=== PATIENT | female | born 1970 | race Caucasian/White ===

== ENCOUNTER 2016-06-22 13:59 | Observation (INO) | payer BC ==
[~2016-06-22] VITALS: Ht 167.6 cm; Wt 118.0 kg
[~2016-06-22 13:59] MED LIST: SYNTHROID112 MCG PO
[2016-06-22 14:38] LABS: HEMATOCRIT 43.6 % (36.0-46.0); MCH 28.4 PG (29.0-34.0); MCHC 32.1 G/DL (30.0-36.0); MCV 88.4 FL (83-99); RBC DIS.WIDTH-CV 13.8 % (11.8-14.6); RBC DIS.WIDTH-SD 44.4 % (39-53); RED BLOOD COUNT 4.93 M/uL (3.80-5.20)
[2016-06-22 14:46] LABS: CHLORIDE 108 mEq/L (99-109); POTASSIUM 4.2 mEq/L (3.7-5.4); SODIUM 144 mEq/L (136-147)
[2016-06-22 14:48] LABS: D-DIMER ELISA 0.47 mg/L FEU (< 0.57); GLUCOSE 89 mg/dL (70-99)
[2016-06-22 14:50] LABS: ANION GAP 8 MEQ/L (2-14)
[2016-06-22 14:52] LABS: GFR ESTIMATE (CALCULATED) > 59 mL/min/
[2016-06-22 14:53] LABS: UREA NITROGEN (BUN) 11 mg/dL (9-23)
[2016-06-22 14:58] LABS: TROP-I INTERPRETATION NEGATIVE; TROPONIN-I < 0.01 ng/mL (0.0-0.30)
[2016-06-22] MEDS ORDERED: LEVOTHYROXINE137 MCG PO (15:19)
[2016-06-22] MEDS ORDERED: FLORINEF ACETA0.1 MG PO (15:20)
[2016-06-22] MEDS ORDERED: HYDROCORTISONE5 MG PO ×3 (15:20→16:54)
[2016-06-22] MEDS ORDERED: VITAMIN D2000 UNI1 PO (15:21)
[2016-06-22] MEDS ORDERED: CORTEF10 MG PO (15:21)
[2016-06-22] MEDS ORDERED: VITAMIN B122500 MCG PO (15:22)
[2016-06-22] MEDS ORDERED: NAPROSYN500 MG PO (16:36)
[2016-06-22 16:58] LABS: MEAN PLAT.VOLUME 11.3 uM^3 (9.5-12.4); PLATELET COUNT 241 K/uL (156-360)
[2016-06-22 19:35] LABS: HDL CHOLESTEROL 43 MG/DL (Desirable>=50); LDL CHOLESTEROL 93 mg/dL (Desirable<100); NON-HDL CHOLESTEROL 114 mg/dL (Desirable<160); SAMPLE HEMOLYSIS CHECK 0; SAMPLE ICTERIC CHECK 0; SAMPLE LIPEMIA CHECK 0; TOTAL CHOLESTEROL 157 mg/dL (Desirable<200); TRIGLYCERIDES 103 MG/DL (Normal: <150)
[2016-06-22 21:05] VITALS: BP 125/76
[2016-06-22 23:49] VITALS: BP 117/57
[2016-06-23 00:56] LABS: TROP-I INTERPRETATION NEGATIVE; TROPONIN-I < 0.01 ng/mL (0.0-0.30)
[2016-06-23 03:35] VITALS: BP 140/72
[2016-06-23 06:10] LABS: HEMATOCRIT 38.3 % (36.0-46.0); MCHC 31.9 G/DL (30.0-36.0); MEAN PLAT.VOLUME 11.6 uM^3 (9.5-12.4); PLATELET COUNT 184 K/uL (156-360); RBC DIS.WIDTH-SD 45.1 % (39-53); RED BLOOD COUNT 4.35 M/uL (3.80-5.20); WHITE BLOOD COUNT 6.3 K/uL (4.1-10.2)
[2016-06-23 06:51] LABS: TROP-I INTERPRETATION NEGATIVE; TROPONIN-I < 0.01 ng/mL (0.0-0.30)
[2016-06-23 06:53] LABS: ANION GAP 9 MEQ/L (2-14); CHLORIDE 110 MEQ/L (99-109); POTASSIUM 3.9 MEQ/L (3.7-5.4); SAMPLE HEMOLYSIS CHECK 0; SAMPLE ICTERIC CHECK 0; SAMPLE LIPEMIA CHECK 0; SODIUM 142 MEQ/L (136-147)
[2016-06-23 06:59] LABS: GFR ESTIMATE (CALCULATED) > 59 mL/min/; GLUCOSE 79 mg/dL (70-99); UREA NITROGEN (BUN) 11 mg/dL (9-23)
[2016-06-23 07:10] VITALS: BP 113/65
[2016-06-23 11:17] VITALS: BP 117/68
== END 2016-06-23 18:26 | disposition home or self-care (01) ==
LOC: EME 13:59 → EDOF 18:38 → 5WEST 20:32
PROVIDERS: Hospitalist
DX: R07.89 Other chest pain (principal); R94.31 Abnormal electrocardiogram [ECG] [EKG]; R06.02 Shortness of breath; E66.01 Morbid (severe) obesity due to excess calories; D68.2 Hereditary deficiency of other clotting factors; E03.9 Hypothyroidism, unspecified; E27.40 Unspecified adrenocortical insufficiency; Z68.41 Body mass index [BMI] 40.0-44.9, adult
CPT/HCPCS: 71020; 71275; 80048; 80061; 83880; 84484; 85027; 85379; 93005; 99281; 99285; G0378; J1650; J7030